=== PATIENT | male | born 1985 ===

== ENCOUNTER 2025-01-29 07:53 | Outpatient (AMB) | payer OTHER, SELFPAY ==
--- OUTSIDE RECORDS SUMMARY | 2025-01-29 07:56 | XMS_ITS | Data Portability ---
Author Organization [facility] ([place], [place]), [facility] Address [address] [place] [address] Care Team Providers Care Legal Executive Name Role Phone DELMY RAYMOND Primary Care Provider [facility] Materials Buyer RAKESH LESTER Sports Medicine Assessment Encounter Date Assessment Date Assessment LastModified by Organization Details LastModified Time 11/24/2024 11/24/2024 My total time spent today documenting and providing coordinated care for this patient is 45 min. I have reviewed, collected, and updated relevant history. I have reviewed: labs, x-rays, specialty notes, and discharge summaries as appropriate. [email or web address] Not available 11/24/2024 18:05:40 12/30/2024 12/30/2024 X-rays of the right ankle from 04/2024 were independently interpreted demonstrating no bony injury. Normal talar dome (05/2024) RF - <10 CCP - < 16 BOLA - Neg ESR - 4 CRP - 0.5 Not available 12/30/2024 09:00:41 Plan of Treatment Reminders Order Date Submit Date Provider Last Modified By Organization Details Last Modified Time Details Appointments Follow Up, 30 2024 11:00A Gerda RAYMOND MD Not available Not available Not available Sports Med Follow Up (20) 2024 08:50A Gerda Lester MD Not available Not available Not available Lab lipid panel, serum [address] [facility], [address] [place] [address], [id number], 10/23/2024 14:33:40 CMP, serum or plasma [address] [facility], [address] [place] [address], [id number], 10/23/2024 14:33:39 TSH, serum or plasma [address] [facility], [address] [place] [address], [id number], 10/23/2024 11:39:[address] [facility], [address] [place] [address], [id number], 10/23/2024 10:32:30 erythroc yte sediment ation rate by westergr en method [address] [facility], [address] [place] [address], [id number], 05/15/2024 15:31:05 C-reacti ve protein, quantita tive, serum or plasma [address] [facility], [address] [place] [address], [id number], 05/15/2024 14:11:58 rheumato id factor, qualitat katie, serum 2023 [email or web address], [address] [place] [address], [id number], 05/20/2024 14:45:41 ccp (cyclic citrulli nated peptide) igg, serum [address] [facility], [address] [place] [address], [id number], 05/20/2024 10:42:[address] [facility], [address] [place] [address], [id number], 05/15/2024 12:20:07 CMP, serum or plasma [address] [facility], [address] [place] [address], [id number], 05/15/2024 14:11:57 BOLA (antinuc lear antibodi es) screen, ifa, serum [address] [facility], [address] [place] [address], [id number], 05/20/2024 10:42:45 CMP, serum or plasma [address] [facility], [address] [place] [address], [id number], 05/11/2024 15:24:56 lipid panel, serum [address] [facility], [address] [place] [address], [id number], 05/12/2024 10:10:50 Referral physical therapis t referral - Right ankle anterior impingem ent Eval and treat Hip and core strength ening Improve ankle strength and proprioc eption Manual therapy and modaliti es PRN 2024 025 [facility], [address], [place], [address], 12/30/2024 11:20:48 sports medicine referral 2024 025 gustavo Lester MD, [address] [place] [address], [id number], 11/25/2024 15:17:38 sleep medicine referral 2024 025 [email or web address] [facility], [address] [place] [address] [address], [place], [address], 11/27/2024 16:00:24 allergis t referral 2024 025 [email or web address] [facility], [address] [place] [address], [id number], 10/23/2024 08:58:33 sleep medicine referral 2024 025 [email or web address] [facility] [address], [place], [address], 11/27/2024 15:58:17 cardiolo gist referral 2023 024 [facility], [facility] [place], [address], 08/18/2024 11:52:03 Procedures None recorded . Surgeries None recorded . Imaging XR, foot - x-ray left foot due to pain 2024 [facility] ([facility]), [address] [place], [address], 12/30/2024 14:18:22 XR, ankle [address] [facility] ([facility]), [place], [address], 04/23/2024 16:29:35 Medication Orders None recorded . Patient TargetsNo targets recorded. Patient Instructions Encounter Date Encounter Id Patient Instructions Last Modified By Organization Details Last Modified Time 10/22/2024 [id number] Patient Instructions: [id number] Not available 10/22/2024 14:15:18 12/30/2024 [id number] Go to physical therapy for the right ankle Have left foot x-rays done Activities as tolerated Follow-up in 10 weeks for a recheck Not available 12/30/2024 08:45:41 All of the patients questions were answered and they understand the plan of care. Thank you for allowing me to participate in the care of your patient. Please feel free to contact me with any questions regarding their care. 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 Referring Physician: Delmy Raymond [facility], Encounter Date: 10/22/2024 Sleep Medicine Referral for Fatigue Referring Physician: Delmy Raymond [facility], Encounter Date: 10/22/2024 Sleep Medicine Referral for Fatigue Referring Physician: Delmy Raymond [facility], Encounter Date: 11/24/2024 Referring Physician: Delmy barclay [facility], Encounter Date: 11/24/2024 Physical Therapist Referral for Chronic ankle pain Right ankle anterior impingementEval and treatHip and core strengtheningImprove ankle strength and proprioceptionManual therapy and modalities PRN Referring Physician: Rakesh Lester Sports Medicine, Encounter Date: 12/30/2024 Results Created Date Observation Date Name Description Value Unit Range Abnormal Flag Note LastModifiedBy Organization Detail LastModifiedTime 05/08/2005/11/2024 COMP. METAB OLIC PANEL glucose 99 mg/dL 70-100 Not Available [address], [address], 05/11/2024 15:24:55 05/08/20 24 05/11/2024 COMP. METAB OLIC PANEL BUN 18 mg/dL 7-18 Not Available [address], [address], 05/11/2024 15:24:55 05/08/20 24 05/11/2024 COMP. METAB OLIC PANEL creatinine 1.0 mg/dL 0.8-1. 3 Not Available [address], [address], 05/11/2024 15:24:55 05/08/20 24 05/11/2024 COMP. METAB OLIC PANEL B/C 18.0 ratio Not Available [address], [address], 05/11/2024 15:24:55 05/08/20 24 05/11/2024 COMP. METAB OLIC PANEL GFR >=60ML /MIN mL/mi n normal >=60m L/min - Lydia l or midly reduc ed <60mL /min- Decre ased kidne y funct ion <15mL /min - Kidne y failu re [facility] calcu lates estim ated Glome rular Filtr ation Rate (eGFR ) using the Chron ic Kidne y Disea se Epide miolo gy Colla borat ion (CKD- EPI) Equat ion (Tyshawn r et. al 2020) as recom ashley d by the Natio nal Kidne y Found ation . eGFR is based on age, serum creat inine , and sex. CKD-E PI does not calcu late eGFR by race, does not apply to child lisa (age <18 years ), and shoul d not be used in pregn mihaela. Not Available [address], [address], 05/11/2024 15:24:55 05/08/2005/11/2024 COMP. METAB OLIC PANEL sodium 141 mmol/ L 136-14 5 Not Available [address], [address], 05/11/2024 15:24:55 05/08/20 24 05/11/2024 COMP. METAB OLIC PANEL potassium 4.8 mmol/ L 3.5-5. 1 Not Available [address], [address], 05/11/2024 15:24:55 05/08/20 24 05/11/2024 COMP. METAB OLIC PANEL chloride 101 mmol/ L 96-107 Not Available [address], [address], 05/11/2024 15:24:55 05/08/2005/11/2024 COMP. METAB OLIC PANEL anion gap 9.8 5.0-15 .0 Not Available [address], [address]68, 05/11/2024 15:24:55 05/08/20 24 05/11/2024 COMP. METAB OLIC PANEL CO2 30 mmol/ L 21-32 Not Available [address], [address], 05/11/2024 15:24:55 05/08/2005/11/2024 COMP. METAB OLIC PANEL calcium 9.2 mg/dL 8.5-10 .3 Not Available [address], [address], 05/11/2024 15:24:55 05/08/2005/11/2024 COMP. METAB OLIC PANEL total protein 7.6 g/dL 6.4-8. 2 Not Available [address], [address], 05/11/2024 15:24:55 05/08/20 24 05/11/2024 COMP. METAB OLIC PANEL albumin 4.3 g/dL 3.4-5. 0 Not Available [address], [address], 05/11/2024 15:24:55 05/08/2005/11/2024 COMP. METAB OLIC PANEL globulin 3.3 g/dL Not Available [address], 6[address], 05/11/2024 15:24:55 05/08/2005/11/2024 COMP. METAB OLIC PANEL A/G 1.3 ratio 0.8-2. 0 Not Available [address], [address], 05/11/2024 15:24:55 05/08/2005/11/2024 COMP. METAB OLIC PANEL total bilirubin 0.90 mg/dL 0.00-1 .00 Not Available [address], [address], 05/11/2024 15:24:55 05/08/2005/11/2024 COMP. METAB OLIC PANEL AST 43 U/L 0-37 high Not Available [address], 79049, 05/11/2024 15:24:55 05/08/2005/11/2024 COMP. METAB OLIC PANEL ALT 71 U/L 6-63 high Not Available [address], [address], 05/11/2024 15:24:55 05/08/20 24 05/11/2024 COMP. METAB OLIC PANEL alk. phos. 66 U/L 50-136 Not Available [address], [address], 05/11/2024 15:24:55 05/08/2005/12/2024 LIPID PANEL cholesterol 276 mg/dL <200 mg/dl Kamala able 200-2 39 mg/dl Borde rline High >240 mg/dl High Not Available [address], [address], 05/12/2024 10:10:50 05/08/2005/12/2024 LIPID PANEL triglyceride s 74 mg/dL <150 mg/dL Lydia l 150-1 99 mg/dL Borde rline High 200-4 99 mg/dL High >500 mg/dL Very High Not Available [address], [address], 05/12/2024 10:10:50 05/08/2005/12/2024 LIPID PANEL direct HDL 82 mg/dL <40 mg/dl - Major Risk for CHD >60 mg/dl - Negat katie Risk for CHD Not Available [address], [address], 05/12/2024 10:10:50 05/08/2005/12/2024 LDL - CALCU LATED LDL - calculated 179 RISK CATEG ORY LDL GOAL _ CHD or CHD Risk Equiv alent s <100 mg/dl (10-y ear risk >20%) 2+ Risk Facto rs <130 mg/dl (10-y ear risk <= 20%) 0-1 Risk Facto r <160 mg/dl [facility] with 0-1 risk facto r have a 10 year risk <10%, thus 10 year risk asses ment in peopl e with 0-1 risk facto r is not beckiegallito zendejas. Not Available [address], [address], 05/12/2024 10:10:51 05/15/20 24 05/15/2024 CBC WBC 4.95 K/ L 4.23-9 .07 Not Available [address], [address]66, 05/15/2024 12:20:07 05/15/20 24 05/15/2024 CBC RBC 4.87 M/ L 4.63-6 .08 Not Available [address], 53467, 05/15/2024 12:20:07 05/15/20 24 05/15/2024 CBC HGB 14.3 g/dL 13.7-1 7.5 Not Available [address], 49498, 05/15/2024 12:20:07 05/15/20 24 05/15/2024 CBC HCT 41.5 % 40.1-5 1.0 Not Available [address], 81176, 05/15/2024 12:20:07 05/15/20 24 05/15/2024 CBC MCV 85.2 fL 79.0-9 2.2 Not Available [address], [address]24, 05/15/2024 12:20:07 05/15/20 24 05/15/2024 CBC MCH 29.4 pg 25.7-3 2.2 Not Available [address], [address]2856, 05/15/2024 12:20:07 05/15/20 24 05/15/2024 CBC MCHC 34.5 g/dL 32.3-3 6.5 Not Available [address], [address]10, 05/15/2024 12:20:07 05/15/20 24 05/15/2024 CBC plt 154 K/ L 163-33 7 low Not Available [address], 81251, 05/15/2024 12:20:07 05/15/20 24 05/15/2024 CBC MPV 9.6 fL 9.4-12 .4 Not Available [address], 47460, 05/15/2024 12:20:07 05/15/20 24 05/15/2024 CBC neut% 49.3 % 34.0-6 7.9 Not Available [address], 85423, 05/15/2024 12:20:07 05/15/20 24 05/15/2024 CBC neut# 2.44 1.78-5 .38 Not Available [address], 50014, 05/15/2024 12:20:07 05/15/20 24 05/15/2024 CBC lymph % 33.9 % 21.8-5 3.1 Not Available [address], 24359, 05/15/2024 12:20:07 05/15/20 24 05/15/2024 CBC lymph # 1.68 K/ L 1.32-3 .57 Not Available [address], [address], 05/15/2024 12:20:07 05/15/20 24 05/15/2024 CBC mono% 7.7 % 5.3-12 .2 Not Available [address], 71361, 05/15/2024 12:20:07 05/15/20 24 05/15/2024 CBC mono# 0.38 0.30-0 .82 Not Available [address], 987[address], 05/15/2024 12:20:07 05/15/20 24 05/15/2024 CBC eo% 8.1 % 0.8-7. 0 high Not Available [address], [address]79[address], 05/15/2024 12:20:07 05/15/20 24 05/15/2024 CBC eo# 0.40 0.04-0 .54 Not Available [address], 20265, 05/15/2024 12:20:07 05/15/20 24 05/15/2024 CBC baso% 0.8 % 0.2-1. 2 Not Available [address], [address], 05/15/2024 12:20:07 05/15/20 24 05/15/2024 CBC baso# 0.04 0.00-0 .08 Not Available [address], [address], 05/15/2024 12:20:07 05/15/20 24 05/15/2024 CBC RDW-CV 11.7 % 11.6-1 4.4 Not Available [address], [address]35, 05/15/2024 12:20:07 05/15/20 24 05/15/2024 CBC Ig% 0.200 % 0.000- 1.500 Ig % >0.5 Indic ates possi ble Left Shift Not Available [address], [address], 05/15/2024 12:20:07 05/15/20 24 05/15/2024 CBC Ig# 0.010 0.000- 0.093 Not Available [address], [address], 05/15/2024 12:20:07 05/15/20 24 05/15/2024 CBC NRBC% 0.0 % 0.0-0. 2 Not Available [address], 81001, 05/15/2024 12:20:07 05/15/20 24 05/15/2024 CBC NRBC# 0.000 0.000- 0.012 Not Available [address], [address], 05/15/2024 12:20:07 05/15/20 24 05/15/2024 COMP. METAB OLIC PANEL glucose 91 mg/dL 70-100 Not Available [address], [address], 05/15/2024 14:11:57 05/15/20 24 05/15/2024 COMP. METAB OLIC PANEL BUN 16 mg/dL 7-18 Not Available [address], [address], 05/15/2024 14:11:57 05/15/20 24 05/15/2024 COMP. METAB OLIC PANEL creatinine 1.1 mg/dL 0.8-1. 3 Not Available [address], [address], 05/15/2024 14:11:57 05/15/20 24 05/15/2024 COMP. METAB OLIC PANEL B/C 14.5 ratio Not Available [address], [address], 05/15/2024 14:11:57 05/15/20 24 05/15/2024 COMP. METAB OLIC PANEL GFR >=60ML /MIN mL/mi n normal >=60m L/min - Lydia l or midly reduc ed <60mL /min- Decre ased kidne y funct ion <15mL /min - Kidne y failu re [facility] calcu lates estim ated Glome rular Filtr ation Rate (eGFR ) using the Chron ic Kidne y Disea se Epide miolo gy Colla borat ion (CKD- EPI) Equat ion (Tyshawn montano et. al 2020) as recom ashley d by the Natio nal Kidne y Found ation . eGFR is based on age, serum creat inine , and sex. CKD-E PI does not calcu late eGFR by race, does not apply to child lisa (age <18 years ), and shoul d not be used in pregn mihaela. Not Available [address], [address], 05/15/2024 14:11:57 05/15/20 24 05/15/2024 COMP. METAB OLIC PANEL sodium 141 mmol/ L 136-14 5 Not Available [address], [address]702, 05/15/2024 14:11:57 05/15/20 24 05/15/2024 COMP. METAB OLIC PANEL potassium 4.4 mmol/ L 3.5-5. 1 Not Available [address], [address], 05/15/2024 14:11:57 05/15/20 24 05/15/2024 COMP. METAB OLIC PANEL chloride 102 mmol/ L 96-107 Not Available [address], [address], 05/15/2024 14:11:57 05/15/20 24 05/15/2024 COMP. METAB OLIC PANEL anion gap 11.4 5.0-15 .0 Not Available [address], [address], 05/15/2024 14:11:57 05/15/20 24 05/15/2024 COMP. METAB OLIC PANEL CO2 28 mmol/ L 21-32 Not Available [address], [address], 05/15/2024 14:11:57 05/15/20 24 05/15/2024 COMP. METAB OLIC PANEL calcium 9.2 mg/dL 8.5-10 .3 Not Available [address], [address], 05/15/2024 14:11:57 05/15/20 24 05/15/2024 COMP. METAB OLIC PANEL total protein 7.4 g/dL 6.4-8. 2 Not Available [address], [address], 05/15/2024 14:11:57 05/15/20 24 05/15/2024 COMP. METAB OLIC PANEL albumin 4.2 g/dL 3.4-5. 0 Not Available [address], 80[address], 05/15/2024 14:11:57 05/15/20 24 05/15/2024 COMP. METAB OLIC PANEL globulin 3.2 g/dL Not Available [address], [address], 05/15/2024 14:11:57 05/15/20 24 05/15/2024 COMP. METAB OLIC PANEL A/G 1.3 ratio 0.8-2. 0 Not Available [address], [address], 05/15/2024 14:11:57 05/15/20 24 05/15/2024 COMP. METAB OLIC PANEL total bilirubin 1.20 mg/dL 0.00-1 .00 high Not Available [address], [address], 05/15/2024 14:11:57 05/15/20 24 05/15/2024 COMP. METAB OLIC PANEL AST 28 U/L 0-37 Not Available [address], [address], 05/15/2024 14:11:57 05/15/20 24 05/15/2024 COMP. METAB OLIC PANEL ALT 47 U/L 6-63 Not Available [address], [address], 05/15/2024 14:11:57 05/15/20 24 05/15/2024 COMP. METAB OLIC PANEL alk. phos. 67 U/L 50-136 Not Available [address], [address], 05/15/2024 14:11:57 05/15/20 24 05/15/2024 C-PRABHU CTIVE PROTE IN (RCRP ) C-reactive protein (rcrp) 0.5 mg/dL 0.5-9. 0 Not Available [address], [address], 05/15/2024 14:11:58 05/15/20 24 05/15/2024 ESR sed rate 4.0 0.0-20 .0 Not Available [address], [address], 05/15/2024 15:31:05 05/15/20 24 05/20/2024 BOLA SCREE N, IFA, W/REF L TITER AND PATTE RN BOLA screen, ifa NEGATI VE negati ve normal BOLA IFA is a first line scree n for detec ting the prese nce of up to appro ximat kim 150 autoa ntibo dies in vario us autoi mmune disea ses. A negat katie BOLA IFA resul t sugge sts an BOLA-a ssoci ated autoi mmune disea se is not prese nt at this time, but is not defin itive . If there is high clini felecia suspi cion for Sjogr en's syndr ome, testi ng for anti- SS-A/ Ro antib maik shoul d be consi dered . Anti- Ester-1 antib maik shoul d be consi dered for clini la suspe cted infla mmato ry myopa isreal . AC-0: Negat katie Inter natio nal Conse nsus on BOLA Patte rns (http s://d oi.or g/10. 1515/ [facility]- 2017- 0052) For addit ional infor courtney mendez refer to http: //johnnie travis ics.c om/fa q/FAQ 177 (This link is being provi ded for infor delmar orlando/ mohit carbajal purpo ses only. ) Not Available [facility] [address], [address], 05/20/2024 10:42:45 05/15/20 24 05/20/2024 CYCLI C CITRU LLINA FRANNY PEPTI DE (CCP) AB (IGG) cyclic citrullinate d peptide (ccp) Ab (IgG) <16 units normal Refer ence Range Negat katie: <20 Weak Posit katie: 20-39 Moder ate Posit katie: 40-59 Stron g Posit katie: >59 Not Available [facility] [address], [address], 05/20/2024 10:42:46 05/15/20 24 05/20/2024 RHEUM ATOID FACTO R rheumatoid factor <10 IU/mL <14 normal Not Available [facility] [address], [address], 05/20/2024 10:42:46 10/23/19 25 10/23/2024 CBC WBC 4.85 K/ L 4.23-9 .07 Not Available [address], [address], 10/23/2024 10:32:30 10/23/19 25 10/23/2024 CBC RBC 5.19 M/ L 4.63-6 .08 Not Available [address], [address], 10/23/2024 10:32:30 10/23/19 25 10/23/2024 CBC HGB 15.3 g/dL 13.7-1 7.5 Not Available [address], [address], 10/23/2024 10:32:30 10/23/1910/23/2024 CBC HCT 46.8 % 40.1-5 1.0 Not Available [address], [address], 10/23/2024 10:32:30 10/23/1910/23/2024 CBC MCV 90.2 fL 79.0-9 2.2 Not Available [address], [address], 10/23/2024 10:32:30 10/23/19 25 10/23/2024 CBC MCH 29.5 pg 25.7-3 2.2 Not Available [address], [address], 10/23/2024 10:32:30 10/23/19 25 10/23/2024 CBC MCHC 32.7 g/dL 32.3-3 6.5 Not Available [address], [address], 10/23/2024 10:32:30 10/23/19 25 10/23/2024 CBC plt 170 K/ L 163-33 7 Not Available [address], [address], 10/23/2024 10:32:30 10/23/19 25 10/23/2024 CBC MPV 9.2 fL 9.4-12 .4 low Not Available [address], [address], 10/23/2024 10:32:30 10/23/1910/23/2024 CBC neut% 52.6 % 34.0-6 7.9 Not Available [address], [address], 10/23/2024 10:32:30 10/23/19 10/23/2024 CBC neut# 2.55 1.78-5 .38 Not Available [address], [address], 10/23/2024 10:32:30 10/23/19 25 10/23/2024 CBC lymph % 33.6 % 21.8-5 3.1 Not Available [address], [address], 10/23/2024 10:32:30 10/23/19 25 10/23/2024 CBC lymph # 1.63 K/ L 1.32-3 .57 Not Available [address], [address], 10/23/2024 10:32:30 10/23/19 25 10/23/2024 CBC mono% 7.0 % 5.3-12 .2 Not Available [address], [address], 10/23/2024 10:32:30 10/23/19 25 10/23/2024 CBC mono# 0.34 0.30-0 .82 Not Available [address], [address], 10/23/2024 10:32:30 10/23/19 25 10/23/2024 CBC eo% 5.8 % 0.8-7. 0 Not Available [address], [address], 10/23/2024 10:32:30 10/23/19 25 10/23/2024 CBC eo# 0.28 0.04-0 .54 Not Available [address], [address], 10/23/2024 10:32:30 10/23/19 25 10/23/2024 CBC baso% 0.8 % 0.2-1. 2 Not Available [address], [address], 10/23/2024 10:32:30 10/23/19 25 10/23/2024 CBC baso# 0.04 0.00-0 .08 Not Available [address], [address]756, 10/23/2024 10:32:30 10/23/19 25 10/23/2024 CBC RDW-CV 12.3 % 11.6-1 4.4 Not Available [address], [address], 10/23/2024 10:32:30 10/23/19 25 10/23/2024 CBC Ig% 0.200 % 0.000- 1.500 Ig % >0.5 Indic ates possi ble Left Shift Not Available [address], [address], 10/23/2024 10:32:30 10/23/19 25 10/23/2024 CBC Ig# 0.010 0.000- 0.093 Not Available [address], [address], 10/23/2024 10:32:30 10/23/1910/23/2024 CBC NRBC% 0.0 % 0.0-0. 2 Not Available [address], [address], 10/23/2024 10:32:30 10/23/1910/23/2024 CBC NRBC# 0.000 0.000- 0.012 Not Available [address], [address], 10/23/2024 10:32:30 10/23/1910/23/2024 TSH TSH 0.67 uIU/m L 0.50-6 .00 The [employer] can [employer] Endoc rinol ogy and Ameri can Thyro id Assoc iatio n recom mend goal TSH value s betwe en 0.4-4 .0 mIU/m L. Not Available [address], [address], 10/23/2024 11:39:52 10/23/19 25 10/23/2024 COMP. METAB OLIC PANEL glucose 92 mg/dL 70-100 Not Available [address], [address], 10/23/2024 14:33:39 10/23/19 25 10/23/2024 COMP. METAB OLIC PANEL BUN 14 mg/dL 7-18 Not Available [address], [address], 10/23/2024 14:33:39 10/23/19 25 10/23/2024 COMP. METAB OLIC PANEL creatinine 1.0 mg/dL 0.8-1. 3 Not Available [address], [address], 10/23/2024 14:33:39 10/23/19 25 10/23/2024 COMP. METAB OLIC PANEL B/C 14.0 ratio Not Available [address], [address], 10/23/2024 14:33:39 10/23/19 25 10/23/2024 COMP. METAB OLIC PANEL GFR >=60ML /MIN mL/mi n normal >=60m L/min - Lydia l or midly reduc ed <60mL /min- Decre ased kidne y funct ion <15mL /min - Kidne y failu re [facility] calcu lates estim ated Glome rular Filtr ation Rate (eGFR ) using the Chron ic Kidne y Disea se Epide miolo gy Colla borat ion (CKD- EPI) Equat ion (Tyshawn r et. al 2020) as recom ashley d by the Natio nal Kidne y Found ation . eGFR is based on age, serum creat inine , and sex. CKD-E PI does not calcu late eGFR by race, does not apply to child lisa (age <18 years ), and shoul d not be used in pregn mihaela. Not Available [address], [address], 10/23/2024 14:33:39 10/23/19 25 10/23/2024 COMP. METAB OLIC PANEL sodium 145 mmol/ L 136-14 5 Not Available [address], [address], 10/23/2024 14:33:39 10/23/19 25 10/23/2024 COMP. METAB OLIC PANEL potassium 4.5 mmol/ L 3.5-5. 1 Not Available [address], [address]247, 10/23/2024 14:33:39 10/23/19 25 10/23/2024 COMP. METAB OLIC PANEL chloride 103 mmol/ L 96-107 Not Available [address], [address]951, 10/23/2024 14:33:39 10/23/19 25 10/23/2024 COMP. METAB OLIC PANEL anion gap 13.5 5.0-15 .0 Not Available [address], [address], 10/23/2024 14:33:39 10/23/19 25 10/23/2024 COMP. METAB OLIC PANEL CO2 29 mmol/ L 21-32 Not Available [address], [address], 10/23/2024 14:33:39 10/23/19 25 10/23/2024 COMP. METAB OLIC PANEL calcium 9.0 mg/dL 8.5-10 .3 Not Available [address], [address], 10/23/2024 14:33:39 10/23/19 25 10/23/2024 COMP. METAB OLIC PANEL total protein 7.4 g/dL 6.4-8. 2 Not Available [address], [address], 10/23/2024 14:33:39 10/23/19 25 10/23/2024 COMP. METAB OLIC PANEL albumin 4.4 g/dL 3.4-5. 0 Not Available [address], [address], 10/23/2024 14:33:39 10/23/19 25 10/23/2024 COMP. METAB OLIC PANEL globulin 3.0 g/dL Not Available [address], [address], 10/23/2024 14:33:39 10/23/19 25 10/23/2024 COMP. METAB OLIC PANEL A/G 1.5 ratio 0.8-2. 0 Not Available [address], [address], 10/23/2024 14:33:39 10/23/19 25 10/23/2024 COMP. METAB OLIC PANEL total bilirubin 0.70 mg/dL 0.00-1 .00 Not Available [address], [address], 10/23/2024 14:33:39 10/23/19 25 10/23/2024 COMP. METAB OLIC PANEL AST 25 U/L 0-37 Not Available [address], [address], 10/23/2024 14:33:39 10/23/19 25 10/23/2024 COMP. METAB OLIC PANEL ALT 41 U/L 6-63 Not Available [address], [address], 10/23/2024 14:33:39 10/23/19 25 10/23/2024 COMP. METAB OLIC PANEL alk. phos. 73 U/L 50-136 Not Available [address], [address], 10/23/2024 14:33:39 10/23/19 25 10/23/2024 LIPID PANEL cholesterol 276 mg/dL <200 mg/dl Kamala able 200-2 39 mg/dl Borde rline High >240 mg/dl High Not Available [address], [address], 10/23/2024 14:33:40 10/23/19 25 10/23/2024 LIPID PANEL triglyceride s 59 mg/dL <150 mg/dL Lydia l 150-1 99 mg/dL Borde rline High 200-4 99 mg/dL High >500 mg/dL Very High Not Available [address], [address], 10/23/2024 14:33:40 10/23/19 25 10/23/2024 LIPID PANEL direct HDL 64 mg/dL <40 mg/dl - Major Risk for CHD >60 mg/dl - Negat katie Risk for CHD Not Available [address], [address], 10/23/2024 14:33:40 10/23/19 25 10/23/2024 DIREC T LDL direct LDL 181 mg/dL RISK CATEG ORY LDL GOAL _ CHD or CHD Risk Equiv alent s <100 mg/dl (10-y ear risk >20%) 2+ Risk Facto rs <130 mg/dl (10-y ear risk <= 20%) 0-1 Risk Facto r <160 mg/dl [facility] all peopl e with 0-1 risk facto r have a 10 year risk <10%, thus 10 year risk asses ment in peopl e with 0-1 risk facto r is not neces cristiana. Not Available [address], [address], 10/23/2024 14:33:41 04/23/20 24 04/23/2024 XR, ankle CLINIC AL HISTOR Y: Right ankle pain. TECHNI QUE: Three views of the right ankle obtain ed. COMPAR DAE: None. FINDIN GS: There is no acute fractu re, sublux ation or disloc ation. The joint spaces are preser priscila. IMPRES SEBASTIEN: No acute bone abnorm ality. Korey del rosario Physic jazmine: Roberto Newton [facility] (Imaging) [address] [place], [address], 04/23/2024 18:56:32 12/31/19 25 12/30/2024 XR, foot CLINIC AL HISTOR Y: Left foot pain. TECHNI QUE: AP, obliqu e, and latera l views of the left foot obtain ed. COMPAR DAE: None. FINDIN GS: There is no acute fractu re or disloc ation. The joint spaces are preser priscila. The soft tissue s are unrema rkable . IMPRES SEBASTIEN: No acute bone injury . Korey del rosario Physic jazmine: Amador Weber [facility] (Imaging) [address] [place], [address], 12/30/2024 18:35:10 Result Notes Documentation Provider Name and Address Organization Details Recorded Time Xr, Ankle : CLINICAL HISTORY: Right ankle pain. TECHNIQUE: Three views of the right ankle obtained. COMPARISON: None. FINDINGS: There is no acute fracture, subluxation or dislocation. The joint spaces are preserved. IMPRESSION: No acute bone abnormality. Reading Physician: Kenton RAYMOND MD [address] [place] [address], [phone], [facility] 04/23/2024 18:13:01 Xr, Foot : CLINICAL HISTORY: Left foot pain. TECHNIQUE: AP, oblique, and lateral views of the left foot obtained. COMPARISON: None. FINDINGS: There is no acute fracture or dislocation.The joint spaces are preserved. The soft tissues are unremarkable. IMPRESSION: No acute bone injury. Reading Physician: Sybil Lester MD [address] [place] [address], [phone], [facility] 12/30/2024 14:28:25 Problems Name Problem SNOMED Code Status Onset Date Resolution Date Notes Provider Name and Address Organization Details Recorded Time Sprain of spinal ligament 451337549 Completed 06/03/2013 Mehreen Mayen D.O. [address] [place], [place] [address], [address], [facility] 6 09:50:52 Migraine 04281671 Active 2016 Mehreen Lopez.O. [address] [place], [place] [address], [address], [facility] 7 14:10:55 Hyperlipide sunil 96400944 Active 2022 LDL 194 Mehreen Lopez.O. [address] [place], [place] [address], [address], [facility] 3 11:44:43 Fatigue 31892729 Active 2024 DELMY RAYMOND MD [address] [place], [place] [address], [address], [facility] 5 18:05:08 Pain of multiple joints 58789720 Active 2024 DELMY RAYMOND MD [address] [place], [place] [address], [address], [facility] 5 18:05:10 Ankle pain 868626005 Active 2024 DELMY RAYMOND MD [address] [place], [place] [address], [address], [facility] 5 18:05:11 Problem Notes None recorded. Procedures Surgical History Date Name Laterality Status Provider Name and Address Organization Details Recorded Time 0 prevention-lois ual alcohol misuse screening completed GRAHAM Pascal [facility] ([place], [place]) 04/25/2020 13:37:49 2 Cerumen Removal completed Enid Plunkett CMA [facility] [place]) 08/20/2011 15:44:31 Imaging Results None recorded. Procedure Notes None recorded. Medical Equipment None Reported. Allergies Allergen ID Allergen Name Allergen Category Reaction Reaction Severity Criticality Documentation Date Start Date Code Code System Note Provider Name and Address Organization Details Recorded Time 918026 latex environme nt,medica tion Not available Not available Not available 05/13/2014 22174 91 RxNorm Brittani Boogie MA null, [facility] [place] 4 10:35:42 Medications Name Sig Start Date Stop Date Status Note LastModified by Organization Details LastModified Time ondansetron 8 mg disintegrat ing tablet TAKE 1 TABLET AT ONSET OF MIGRAINE WHEN NEEDED FOR NAUSEA (ONCE A DAY) 04/22 completed Not Available Not Available Not Available ketoconazol e 2 % topical cream apply to affected area twice a day active Not Available Not Available No t Available rosuvastati n 10 mg tablet TAKE 1 TABLET BY MOUTH EVERYDAY AT BEDTIME active Not Available Not Available No t Available multivitami n active Not Available Not Available Not Available Flonase Allergy Relief 50 mcg/actuati on nasal spray,suspe nsion Inhale 2 sprays every day by intranasa l route. 09/21 completed Not Available Not Available Not Available Flucelvax Quad (PF) 60 mcg (15 mcg x 4)/0.5 mL IM syringe [facility] 04/25 completed Not Available Not Available Not Available Vitals Date Recorded Body height Body mass index (BMI) Body weight Heart rate Oxygen saturation Oxygen saturation in Arterial blood by Pulse oximetry Systolic And Diastolic Provider Name and Address Organization Details Last Updated DateTime 166.37 cm 26.2 kg/m2 98925.7 8 g 66 /min 99 % 99 % 124/76 mm[Hg] Enid Ramos MA [facility], [place]) 13:43:43 Date Recorded Body height Body mass index (BMI) Body weight Heart rate Oxygen saturation Oxygen saturation in Arterial blood by Pulse oximetry Systolic And Diastolic Provider Name and Address Organization Details Last Updated DateTime 5 166.37 cm 26.4 kg/m2 70869.0 7 g 64 /min 99 % 99 % 128/72 mm[Hg] Enid Ramos MA [facility] ([place], [place]) 14:03:35 Date Recorded Body height Provider Name an d Address Organization Details Last Updated DateTime 12/30/2024 166.37 cm Anabel Driscoll MA [facility] 12/30/2024 08:21:57 Date Recorded Body weight Body mass index (BMI) Body height Heart rate Systolic And Diastolic Provider Name and Address Organization Details Last Updated DateTime 04/23/2024 66652.49 g 23.9 kg/m2 166.37 cm 65 /min 135/86 mm[Hg] Enid Ramos MA [facility] [place]) 04/23/2024 15:34:30 Date Recorded Body height Heart rate Oxygen saturation Oxygen saturation in Arterial blood by Pulse oximetry Systolic And Diastolic Provider Name and Address Organization Details Last Updated DateTime 4 166.37 cm 81 /min 97 % 97 % 122/62 mm[Hg] Enid Ramos MA [facility], [place]) 4 16:40:16 Social History Question Answer Notes LastModified by Organizat ion Details LastModified Time Tobacco Smoking Status Never Smoker checked kb 11-07-22 Nicol Wheat [facility] 11/07/2022 11:12:46 What Is Your Level Of Caffeine Consumption? Occasional Information not available 03/30/2013 How Much Tobacco Do You Chew? None [email or web address] Information not available 05/13/2014 What Type Of Diet Are You Following? REGULAR Information not available 03/18/2013 How Many Days In The Past Year Have You Had A Heavy Drinking Consumption (4+ Female, 5+ Male)? 0 Information not available 03/30/2013 Are There Any Guns Present In Your Home? No Information not available 03/30/2013 Live Alone Or With Others? With Others Information not available 03/18/2013 Patient Has Health Care Proxy Signed And In Chart No 2012 Proxy In Chart Invalid- Not Dated. Pls Obtin New One. Information Given 08/20/2011, 03/30/13, 05/13/14, 10/07/15 [email or web address] Information not available 08/20/2011 Marital Status Informatio n not available 03/18/2013 Mosquito Repellent Used Routinely No Information not available 03/30/2013 What Was The Date Of Your Most Recent Tobacco Screening? 10/22/2024 [email or web address] Information not available 10/22/2024 How Many Children Do You Have? 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 Yes Information not available 03/30/2013 Smoke Alarm In Home Yes Information not available 03/30/2013 General Stress Level Low Information not available 03/18/2013 Do You Use Sunscreen Routinely? Yes As Needed [email or web address] Information not available 03/30/2013 Sex: Male Functional Status Question Answer Note LastModified by Organizat ion Details LastModified Time What is your level of alcohol consumption? 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 Family History Relationship Description Onset Age of this Age Resolved Age Notes LastModified by Organization Details LastModified Time Mother Migraine [email or web address] Not available 09/21/2016 15:14:52 Brother Rheumatoid arthritis [email or web address] Not available 2016 15:15:11 Father Benign prostatic hyperplasia [email or web address] Not available 02/2018 14:36:34 Notes:pancreatic cancer- pat ernal uncle no DM, no CAD Medical History No medical history recorded. Immunizations Vaccine Type Date Status Note Provider Nam e and Address Organization Details Recorded Time Tdap 2 completed Not Available [facility] 08/01/2019 02:27:46 Influenza, split virus, quadrivalent, PF 6 completed Not Available [facility] 08/01/2019 02:35:43 Influenza, split virus, quadrivalent, PF 7 completed Not Available [facility] 08/01/2019 02:32:28 Influenza, split virus, quadrivalent, PF 8 completed Not Available [facility] 08/01/2019 02:23:01 Influenza, split virus, quadrivalent, PF 9 completed Not Available [facility] 08/01/2019 02:33:02 Influenza, split virus, quadrivalent, preservative 0 completed GRAHAM Pascal, [facility], [place]) 04/25/2020 13:48:27 Td (adult), 5 Lf tetanus toxoid, preservative free, adsorbed 3 completed Mehreen Mayen D.O. [address] [place] [address], [phone], [facility] 11/07/2022 21:26:50 Influenza, split virus, quadrivalent, preservative 1 [facility] 06/02/2021 10:11:53 COVID-19, mRNA, LNP-S, PF, 100 mcg/0.5mL dose or 50 mcg/0.25mL dose 1 completed [facility] 06/02/2021 10:12:35 COVID-19, mRNA, LNP-S, PF, 100 mcg/0.5mL dose or 50 mcg/0.25mL dose 1 completed [facility] 06/02/2021 10:12:41 influenza, unspecified formulation 4 completed Enid Ramirezjennifer JEVON [facility] 04/23/2024 15:33:05 SARS-COV-2 (COVID-19) vaccine, UNSPECIFIED 4 completed Enid Ramos [facility] 04/23/2024 15:33:18 Past Encounters Encounter ID Performer Location Encounter Start Date Encounter Closed Date Diagnosis/Indication Diagnosis SNOMED-CT Code Diagnosis ICD10 Code Diagnosis Note [id number] Gadiel Gomez MD , [facility] [place], OFFICE [address] [place] [address] 08/20/2011 14:45:08 08/20/2011 16:08:08 [id number] Juan Vicente III, MD , [facility] [place], [address]ICE [address] [place] [address] 03/18/2013 10:30:58 03/18/2013 11:18:56 Low back strain 904943894 [id number] Mehreen Mayen D.O. [facility], OFFICE [address] [place] [address] 03/30/2013 14:36:48 03/30/2013 15:44:13 Adult health examination 678609263 see Risk Assessment and Lifestyle Change Counseling section above Fatigue 04790278 suspect related to allergy. will do baseline labs if allergy meds don't help, may consider sleep study Allergic rhinitis 92662563 [id number] Mehreen Mayen D.O. , [facility] [place], OFFICE [address] [place] [address] 05/13/2014 10:20:56 05/13/2014 10:50:25 Hand pain 73048280 low suspicion of fx of R hand. advised to return to ice, ibuprofen prn likely needs more time if sxs do not begin to improve or worsen will let me know. [id number] Mehreen Mayen D.ODaphney , [facility] [place], OFFICE [address] [place] [address] 10/07/2015 08:35:51 10/07/2015 09:46:13 Adult health examination 335968701 Z00.00 see Risk Assessment and Lifestyle Change Counseling section above Counseling 766046388 Z71 .9 Active or passive immunization 685693024 Z23 Acquired t [employer] finger 3484959 M65.30 long motorcyle ride last year, started pain in ulnar aspect of hand, now with trigger finger in am pinky finger right hand Allergic rhinitis 492163 04 J30.9 mainly stuffy nose at end f day/night when trying to sleep [id number] Yazmin Yanez, OT Physical Therapy, [facility] [place] [facility] [address] [facility] [place] [id number] 10/11/2015 14:26:12 10/11/2015 15:09:48 Acquired trigger finger 0555422 M65.253 [id number] Mehreen Mayen D.ODaphney , [facility] [place], [address]ICE [address] [place] [address] 09/21/2016 13:31:22 09/21/2016 14:10:45 Hand pain 63156302 M79.643 bilat hand stiffness, lasts >1 hr, bilata nd symmetricb rother has +RAwill do screening and baseline hand xraysok to use naproxen/i buprofen prn Migraine 89352885 G43.90 9 [id number] Mehreen Mayen D.O. , [facility] [place], [address]ICE [address] [place] [address] 04/18/2017 13:11:06 04/18/2017 15:01:44 Adult health examination 758058972 Z00.00 see Risk Assessment and Lifestyle Change Counseling section above Counseling 501416841 Z71 .9 Active or passive immunization 374602181 Z23 Tinea corporis 44612690 B35.4 has used OTC preps Migraine 12643461 G43.90 9 [id number] Mehreen Mayen D.O. [facility], OFFICE [address] [place] [address] 04/21/2018 13:41:51 04/21/2018 14:34:48 Active or passive immunization 863922286 Z23 Adult heal th examination 565652207 Z00.00 see Risk Assessment and Lifestyle Change Counseling section above Counseling 198140609 Z71 .9 Depression screening 171 479142 Z13.89 depression screening tool administer ed, entered into emr, scored and discussed, time greater than 7.5 minutes [id number] Mehreen Mayen D.O. [facility], OFFICE [address] [place] [address] 04/22/2019 13:38:08 04/22/2019 14:17:00 Adult health examination 950797564 Z00.00 see Risk Assessment and Lifestyle Change Counseling section above Counseling 637792460 Z71 .9 Depression screening 171 815144 Z13.89 depression screening tool administer ed, entered into emr, scored and discussed, time greater than 7.5 minutes Active or passive immunization 833411964 Z23 [id number] Mehreen Mayen D.O. [facility], OFFICE [address] [place] [address] 04/25/2020 13:35:31 04/27/2020 16:28:30 Adult health examination 248337866 Z00.00 see Risk Assessment and Lifestyle Change Counseling section above Counseling 295367899 Z71 .9 Depression screening 171 620856 Z13.89 depression screening tool administer ed, entered into emr, scored and discussed, time greater than 7.5 minutes Screening for alcohol abuse 298911736 Z13.39 [id number] Courtney Joaquin MD , [facility] [place], [address]ICE [address] [place] [address] 06/02/2021 10:02:21 06/02/2021 10:56:37 Tinea corporis 67263418 B35.4 Foreign body in eye 4506 609930 56164 T15.90XA L eye foreign body sensation. Flushed with sterile saline 10cc x 4 today, with improvemen t. No sign of infection. Pt to call over weekend if develops redness for rx of antibiotic drops or ointment. [id number] Mehreen Mayen D.O. , [facility] [place], OFFICE [address] [place] [address] 11/07/2022 10:41:36 11/08/2022 08:07:35 Adult health examination 273919838 Z00.00 see Risk Assessment and Lifestyle Change Counseling section above Depression screening 171 232550 Z13.31 depression screening tool administer ed Screening for alcohol abuse 597047419 Z13.39 Alcohol use screening tool administer ed Active or passive immunization 454948132 Z23 Pain of ri ght knee joint 1403414355 70739 M25.561 started running- had lateral knee pain. iced and rested now resolvedif returns or prevents continued activity- would recommend sports medicine Hyperlipidemia 61485944 E78.5 LDL 194recomme nd repeat every few yearsis running, low risk factors- family h/o hyperlipid emia [id number] DELMY RAYMOND MD , [facility] [place], [address]ICE [address] [place] [address] 04/23/2024 15:26:23 04/23/2024 16:12:06 Pain of right ankle joint 2639073874 2148465 M25.571 Discussed possibilit y of stress fracture. Advised resting/cu tting back as much as possible. RICE as well. Will check an x-ray. Hyperlipidemia 99198335 E78.5 Diabetes m ellitus screening 245383862 Z13.1 [id number] MD VANESSA BUSTILLOS, [facility] [place], OFFICE [address] [place] [address] 05/14/2024 16:29:29 05/18/2024 08:08:53 Liver enzymes level above reference range 801281983 R74.01 Will repeat CMP (see below). May have been elevated due to inflammati on from marathon. If it persists can do more workup. Hyperlipidemia 59692772 E78.01 Discussed - has a strong family history but calculated ASVD score is 1% and he has a healthy lifestyle, non-smoker . He can discuss risk profile in further detail with cardiology . Joint stiffness 29923879 M25.60 Joint stiffness. Brother with diagnosed autoimmune condition. Tachycardia 6282367 R00. 0 Elevated heart rate with exercise, will sustain around 190. Will get cardiology 's opinion. [id number] DELMY RAYMOND MD , [facility] [place], OFFICE [address] [place] [address] 10/22/2024 13:35:46 10/22/2024 15:26:40 Adult health examination 857002265 Z00.00 Most of the annual exam deferred due to time constraint s. Will do a more thorough physical exam when he returns to the office in 1 month. Up to date with screenings and vaccines. Depression screening 171 914346 Z13.31 depression screening tool administer ed Screening for alcohol abuse 658096293 Z13.39 Alcohol use screening tool administer ed Fatigue 33819782 R53.82 Unclear etiology. Lab workup in the past has been negative including autoimmune , inflammato ry markers, Lyme testing, celiac testing, hep C, B12, folate. Food allergies especially low grade could potentiall y be contributi ng to fatigue. He denies snoring but may still benefit from a sleep consult. Denies any hypermobil ity that might indicate an EDS type syndrome. Other differenti al includes mood disorder, POTS, chronic fatigue syndrome, sleep disorder, adrenal disorder. Will meet again once he has his blood work done and has seen cardiology . Allergy to food 06499701 1 Z91.018 Will get formal allergy testing given his reactions to food and persistent fatigue. Weight increased 3426306 00 R63.5 Recent weight gain. Does not feel his appetite increased. Pure hypercholesterolemia 306470383 E78.00 LDL elevated 179 on April. States his family all has elevated cholestero l. [id number] DELMY RAYMOND MD , [facility] [place], [address]ICE [address] [place] [address] 11/24/2024 13:57:37 11/25/2024 16:18:44 Fatigue 37497077 R53.82 Experienci ng some significan t fatigue and weakness during the day. Cardiology consult was reassuring . Will pursue a sleep medicine consult. Pain of mu ltiple joints 10366048 M25.50 Discussed his frustratio n with the lack of cohesive explanatio n for his symptoms. Autoimmune workup has been largely reassuring . Allergy testing has been negative. 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 He feels strongly that the episodes of weakness in his ankles and hands do not feel part of a normal constellat ion of symptoms. We will have him see Sports Medicine to discuss the episodes of ankle weakness as this is the most burdensome when he is trying to run. Will hold off on a referral to a hand specialist for now. Advised to continue to keep a diary of symptoms of intense fatigue and joint pain/swell ing as they occur, ideally with whatever triggers may be present. Ankle pain 337575159 M25 .571 M25.572 G89.29 See above. Hand pain 64465292 M79.6 43 G89.29 See above. Hyperlipidemia 32454466 E78.01 Continue statin, will repeat labs in the future. [id number] Rakesh Lester MD Sports Medicine, [address] [address] 12/30/2024 08:20:28 12/30/2024 11:20:48 Chronic ankle pain 8779485178 9109 M25.571 G89.29 Harshil is a 39-year-ol d male with right ankle anterior pain of somewhat uncertain etiology. This somewhat difficult to give a firm diagnosis today since I was unable to reproduce his symptoms in the office. If feel the main differenti al includes anterior impingemen t, anterior tarsal tunnel syndrome, or possibly a talar dome or intra-janae cular pathology. With his reassuring x-rays I have advised a trial of physical therapy particular ly working on treatment of anterior impingemen t. If his symptoms are not improving further advanced imaging to evaluate for chondral injury of the talar dome would be appropriat e. He was provided with a referral to therapy and will follow up with me in to 10 weeks if his symptoms are not improving. Pain in left foot 657765 7248 37264 M79.672 Harshil's left foot pain is concerning for a possible previous base of the fifth metatarsal stress injury. He does describe dislocatio n as the source of his discomfort although he has been pain-free for several months. He had no pain to palpation today or pain with jumping. I did not x-ray imaging after the visit to evaluate for any nonunion or evidence of previous bony injury. With his symptoms improved he will plan to follow-up with me only as needed if he develops increasing discomfort in his left foot. Health Concerns Section Related Observation LastModified by Organization Norma ferguson LastModified Time None Recorded Concern Status LastModified by Organization Details LastModified Time None Recorded Advance Directives Directive None Recorded Payers Insurance Date Sequence Insurance Name Policy Number Policy Rice Covered Member ID Rice Member ID Guarantor Name 01/07/2025 1 [facility] [id number] Harshil Ziegler [id number] Harshil Herrmannri Notes Date Note Type Note Provider Name and Address Organization Details Recorded Time 04/23/2024 text/html [place] in [address] we ek, has been trainingHas had bouts of gaona splints the last few months, worked around itFor the last 2-3 weeks getting pain in the joint on RFull ROMMild pain with stepping, worse when releasing after steppingNo activity since yesterday, improvingPain worsened about a week ago the day after a long runRotating running shoesUsed kinesio tape in the frontWarm compress helped more than cold DELMY RAYMOND MD [address] [place] [address], [phone], [facility] 04/23/2024 16:11:39 05/14/2024 text/html Family history o f hypercholesterolemia, both mom and dadElevated LFTs, mildTaking ibuprofen 400 mg BID, blood test five days afterCompleted the marathon on 05/02, blood work done on 05/08 Joint inflammation, chronic stiffnessElevated Rf in the past Elevated heart rate when running, persists at 190 for a long time (up to 2 hours) Two cousins from heart issues around his age Periods of time where he would fall asleep/be really tired all of a suddenHas some issues with food allergic reactions, difficulty swallowing DELMY RAYMOND MD [address] [place] [address], [phone], [facility] 05/14/2024 17:17:08 10/22/2024 text/html Pt with hx hyperlipidemia, tachycardia, ankle injury presents for wellness., lives with . No children. Has one rescue dog. Fatigue: primary concern is longstanding fatigue, over 10 years. He has some associated joint stiffness and weakness, particularly in the morning. Has had autoimmune bloodwork, inflammatory markers, Lyme, CBC, all grossly normal. He has had symptoms both when he is active (i.e. marathon training) as well as less active. Sleeps roughly from 11:30 pm to 6:30 am. Wakes up in the night because he's thirsty or has to go to the bathroom, sometimes falls back to sleep, sometimes unable to. Does not snore. Has flares of joint pain, particularly in his hands - sometimes can't hold a pen due to weakness/stiffness. Sometimes his whole body feels weak. Sometimes has a burning sensation in his hands. Sometimes has a burning/weakness in his ankles with exertion, goes away with rest. Went to cardiology for significant tachycardia with workouts. Had a monitor placed, has follow up scheduled this moth to review. Two cousins from heart issues around his age. Has reactions to food mainly consisting of a feeling of blockage in his nares and his throat but does not lose his airway. Mainly happens with peppers. From [facility] so this is no fun. No diarrhea or abdominal symptoms except with dairy. DELMY RAYMOND MD [address] [place] [address], [phone], [facility] 10/22/2024 15:08:35 11/24/2024 text/html Pt with hx fatig ue of unclear etiology, hand pain, ankle pain presents for follow up of fatigue. Fatigue: hasn't changed much. Cardiology visit was reassuring from a cardiac perspective. Has had episodes where he has to stop driving or else he might fall asleep. Has not had a sleep study. Hyperlipidemia: started on a statin by cardiology for hyperlipidemia and elevated genetic risk. Started about a week ago. No side effecst at this point. Joint pain/weakness: used to be mainly in his hands. Then when he started running shifted more to the ankles. The last few weeks having some lower back pain. Little bit worse in the morning. The last few days has noticing swelling in the hands as well. Sometimes has flaring of the discomfort in his ankle where he can't run on it. Gets episodes of weakness where he can't run, then he rests for a few minutes then can start up again. He also fatigues easily with his hands, like with holding a pen or pencil for a minute. Negative allergy testing with Allergy/Immunology.Bro ther with rheumatoid arthritis. Mainly back-related. DELMY RAYMOND MD [address] [place], [phone], [facility] 11/24/2024 18:11:39 12/30/2024 text/html Harshil is a 39-year-old male who presents today for evaluation of worsenign chronic right ankle pain as well as left foot pain. He states his right ankle began hurting in April 2024 when he was training for marathon. He states the time he was running 60-70 km per week. He states he developed gradual onset pain in the anterior aspect of his ankle. He was able to complete his marathon in late April but has not really been able to run since due to pain. He states whenever he runs he quite rapidly will develop pain in the anterior ankle and a sensation of tightness and pressure. This often improves when loosening the laces of his sneaker. He denies any tingling or numbness of his foot. He denies any specific injury or trauma. He has no pain with walking. Regards to his left foot he states in April he developed some lateral foot discomfort around the base of his fifth metatarsal. He states this lasted for 3 weeks but then seemed to improve. He states currently this area is pain-free elbow occasionally has some tightness with inversion type movements. He has no pain with walking or running off his left foot. He has never had a previous left foot injuries or surgery. Harshil states he has had trigger fingers of both hands and concern for autoimmune disease. He has had a workup he states twice with blood work for rheumatoid arthritis which was negative. Rakesh Lester MD [address] [place], [phone], [facility] 12/30/2024 09:02:19
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
[2025-01-29 08:09] VITALS: PULSE 74; O2SAT 98; BMI 25.6
== END 2025-01-29 09:24 | disposition home or self-care (01) ==
LOC: HO.HSMS 07:54
PROVIDERS: PCP Family Medicine; Visit Provider Physician Assistant Medical
DX: G47.19 Other hypersomnia (principal); S30.860A Insect bite (nonvenomous) of lower back and pelvis, initial encounter; W57.XXXA Bitten or stung by nonvenomous insect and other nonvenomous arthropods, initial encounter; Z91.09 Other allergy status, other than to drugs and biological substances; R22.0 Localized swelling, mass and lump, head
CPT/HCPCS: 99204

== ENCOUNTER → 2025-04-12 08:37 | Outpatient (REF) | payer OTHER, SELFPAY | LOC: HO.SL 08:37 | PROVIDERS: PCP Family Medicine; Visit Provider Physician Assistant Medical | DX: G47.19 Other hypersomnia (principal) | CPT/HCPCS: 95806 ==

== ENCOUNTER → 2025-04-12 08:58 | Outpatient (BNV) | payer OTHER, SELFPAY | PROVIDERS: PCP Family Medicine; Visit Provider Psychiatry & Neurology Neurology | DX: G47.33 Obstructive sleep apnea (adult) (pediatric) (principal) | CPT/HCPCS: 95806 ==

== ENCOUNTER 2025-04-19 08:16 | Outpatient (REF) | payer OTHER, SELFPAY ==
[2025-04-19 10:04] LABS: Ferritin 59 ng/mL (20-250)
[2025-04-19 10:14] LABS: Folate 10.4 ng/mL (> or = 4.0); Vitamin B12 360 pg/mL (200-900)
== END 2025-04-19 08:17 | disposition home or self-care (01) ==
LOC: HO.LAB 08:16
PROVIDERS: PCP Family Medicine; Visit Provider Physician Assistant Medical
DX: G47.19 Other hypersomnia (principal); R53.83 Other fatigue; Z13.21 Encounter for screening for nutritional disorder
CPT/HCPCS: 36415; 82306; 82607; 82728; 82746; 83090; 83921; 84443

== ENCOUNTER 2025-05-13 08:25 | Outpatient (AMB) | payer OTHER, SELFPAY ==
[2025-05-13 08:34] VITALS: BP 128/80; PULSE 71; O2SAT 96; BMI 25.7
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
== END 2025-05-13 09:19 | disposition home or self-care (01) ==
LOC: HO.HSMS 08:26
PROVIDERS: PCP Family Medicine; Visit Provider Physician Assistant Medical
DX: G47.19 Other hypersomnia (principal); R06.83 Snoring; S30.860A Insect bite (nonvenomous) of lower back and pelvis, initial encounter; W57.XXXA Bitten or stung by nonvenomous insect and other nonvenomous arthropods, initial encounter; Z91.09 Other allergy status, other than to drugs and biological substances; R22.0 Localized swelling, mass and lump, head; R79.89 Other specified abnormal findings of blood chemistry; E53.8 Deficiency of other specified B group vitamins
CPT/HCPCS: 99214

== ENCOUNTER → 2025-06-27 20:30 | Outpatient (REF) | payer OTHER, SELFPAY ==
--- OUTSIDE RECORDS SUMMARY | 2025-06-27 20:49 | XMS_ITS | Encounter Summary ---
Author Organization [facility] Address [address] [facility] [address] [place] [phone] Phone Care Team Providers Care Engine Wiper Name Role Phone Becky Raymond MD Primary Care Provider [phone] Encounter Details Date Type Department Care Team ([facility] st Contact Info) Description 04/28/2025 Procedure Pass [facility], [address] [address] Social History Tobacco Use Types Packs/Day Years Used Date Smoking Tobacco: Never Assessed Education Answer Date Recorded Are you interested in more education? Not on juan r e 04/29/2025 Are you concerned about learning? Not on file 04/29/2025 No 04/29/2025 No 04/29/2025 Digital Access Answer Date Recorded No 04/29/2025 No 04/29/2025 Reliable internet access at home? Not on file 04/29/2025 Device with a working camera? Not on file Comments Unknown Sex and Gender Information Value Date Recorded Sex Assigned at Not on file Legal Sex Unknown 04/28/2025 1:17 PM EDT Gender Identity Male 05/09/2025 8:22 AM EDT Sexual Orientation Straight 05/09/2025 8: 22 AM EDT documented as of this encounter Plan of Treatment Not on file documented as of this encounter Visit Diagnoses Not on filedocumented in this encounter Care Teams Engine Wiper Relationship Specialty Start Date End Date Becky Raymond MD [address] [place] [phone] [email or web address] PCP - General Family Medicine 04/29/25 documented as of this encounter Additional Source Comments The information contained in this document represents components of the legal health record. It is not the complete legal health record.[facility]
--- OUTSIDE RECORDS SUMMARY | 2025-06-27 20:49 | XMS_ITS | Clinical Summary ---
Author Organization [facility] Address [address] [place] [phone] Phone Care Team Providers Care Cream Separator Operator Name Role Phone Becky Raymond MD Primary Care Provider [phone] Encounters Date Type Department Care Team Description 05/16/2025 3:11 PM EST - 05/16/2025 11:59 PM EST Hospital Encounter [address] [address] Rakesh Lester MD Discharge Disposition: Home or Self Care 04/28/2025 Procedure Pass [address] [id number] 04/28/2025 Transcribe Orders Virtual Department [address] [place] [phone] Rakesh Lester MD Pain in right ankle and joints of right foot (Primary Dx); Other chronic pain from Last 3 Months Social History Tobacco Use Types Packs/Day Years Used Date Smoking Tobacco: Never Assessed Education Answer Date Recorded Are you interested in more education? Not on juan r e 05/16/2025 Are you concerned about learning? Not on file 05/16/2025 No 05/16/2025 No 05/16/2025 Digital Access Answer Date Recorded No 05/16/2025 No 05/16/2025 Reliable internet access at home? Not on file 05/16/2025 Device with a working camera? Not on file Comments Unknown Sex and Gender Information Value Date Recorded Sex Assigned at Not on file Legal Sex Unknown 04/28/2025 1:17 PM EDT Gender Identity Male 05/09/2025 8:22 AM EDT Sexual Orientation Straight 05/09/2025 8: 22 AM EDT Plan of Treatment Not on file Medical Devices Not on file Procedures Procedure Name Priority Date/Time Associated Diagnosis Comments MRI ANKLE WITHOUT CONTRAST (RIGHT) Routine 05/16/2025 4:43 PM EST Pain in right ankle and joints of right foot Other chronic pain from Last 3 Months Results * MRI ANKLE WITHOUT CONTRAST (RIGHT) (05/16/2025 4:43 PM EST) Anatomical Region Laterality Modality Ankle Right Magnetic Resonan ce 05/18/2025 2:11 PM EST Impressions 05/18/2025 2:20 PM EST Trace tibiotalar joint effusion, otherwise unremarkable examination. Narrative 05/18/2025 2:20 PM EST MRI ANKLE WITHOUT CONTRAST (RIGHT) Referring clinician's provided indication for this examination in Epic: Outside Radiology Order; right ankle pain TECHNIQUE: Multi-sequence, multi-planar MRI of the ankle without intravenous contrast. COMPARISON: None FINDINGS: Lateral ligaments: The syndesmotic, anterior talofibular, posterior talofibular, and calcaneofibular ligaments are intact. Medial ligaments: The deltoid and spring ligaments are intact. Plantar fascia: The plantar fascia demonstrates normal morphology and signal. Peroneal tendons: The peroneus longus and brevis tendons are intact. Flexor tendons: The posterior tibialis, flexor digitorum longus, and flexor hallucis longus tendons are intact. Extensor tendons: The anterior tibialis, extensor hallucis longus, and extensor digitorum longus tendons are intact. Achilles tendon: The Achilles tendon demonstrates normal morphology and signal. Bones/joints: There is no evidence of acute fracture, subluxation, or dislocation. There is no osteochondral defect of the talar dome. The articular cartilage appears grossly intact. There is a trace tibiotalar joint effusion. Procedure Note Nikole Berkowitz MD - 05/18/2025 MRI ANKLE WITHOUT CONTRAST (RIGHT) Referring clinician's provided indication for this examination in Epic:Outside Radiology Order; right ankle pain TECHNIQUE: Multi-sequence, multi-planar MRI of the ankle withoutintravenous contrast. COMPARISON: None FINDINGS: Lateral ligaments: The syndesmotic, anterior talofibular, posteriortalofibular, and calcaneofibular ligaments are intact. Medial ligaments: The deltoid and spring ligaments are intact. Plantar fascia: The plantar fascia demonstrates normal morphology andsignal. Peroneal tendons: The peroneus longus and brevis tendons are intact. Flexor tendons: The posterior tibialis, flexor digitorum longus, andflexor hallucis longus tendons are intact. Extensor tendons: The anterior tibialis, extensor hallucis longus, andextensor digitorum longus tendons are intact. Achilles tendon: The Achilles tendon demonstrates normal morphology andsignal. Bones/joints: There is no evidence of acute fracture, subluxation, ordislocation. There is no osteochondral defect of the talar dome. Thearticular cartilage appears grossly intact. There is a trace tibiotalarjoint effusion. IMPRESSION: Trace tibiotalar joint effusion, otherwise unremarkable examination. Rakesh Lester MD IMG MR EXTREMITY Final Resul t from Last 3 Months Insurance [employer] [place] [place] [address] [place] [address] [place] [address] [place] [address] HMO [facility] HMO Care Teams Cream Separator Operator Relationship Specialty Start Date End Date Becky Raymond MD [address] [place] [id number] [email or web address] PCP - General Family Medicine 04/29/25 Additional Source Comments The information contained in this document represents components of the legal health record. It is not the complete legal health record.[facility]
--- OUTSIDE RECORDS SUMMARY | 2025-06-27 20:49 | XMS_ITS | Encounter Summary ---
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 Role Phone Becky Raymond MD Primary Care Provider [phone] Reason for Referral * MRI/CAT Scan - Closed Specialty Diagnoses / Procedures Referred By Jai hyman Referred To Contact Radiology Diagnoses Pain in right ankle and joints of right foot Other chronic pain Procedures MRI Ankle (Right) CHG MRI LOWER EXTREM JT, W/O CONTRAST Rakesh Lester MD [address] [place] [phone] Phone: tel: fax: [email or web address] Referral ID Status Reason Start Date Expiration Date Visits Re quested Visits Authorized [id number] Closed 04/28/2025 06/27/2025 1 1 Encounter Details Date Type Department Care Team (Latest Contact Info) Description 04/28/2025 Transcribe Orders Virtual Department [address] [place] [address] Rakesh Lester MD [address] [place] [phone] [email or web address] Pain in right ankle and joints of right foot (Primary Dx); Other chronic pain Social History Tobacco Use Types Packs/Day Years [...] on file documented as of this encounter Results * MRI ANKLE WITHOUT CONTRAST (RIGHT) [...] Trace tibiotalar joint effusion, otherwise unremarkable examination. 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 It is not the complete legal health record.[facility]
== END ==
LOC: HO.SL 20:30
PROVIDERS: PCP Family Medicine; Visit Provider Physician Assistant Medical
DX: G47.19 Other hypersomnia (principal); R06.83 Snoring
CPT/HCPCS: 95810

== ENCOUNTER → 2025-06-27 20:45 | Outpatient (BNV) | payer OTHER, SELFPAY | PROVIDERS: PCP Family Medicine; Visit Provider Internal Medicine | DX: R06.83 Snoring (principal) | CPT/HCPCS: 95810 ==